=== PATIENT | male | born 1945 | race Hispanic/Latino ===

== ENCOUNTER 2021-02-25 12:42 | Inpatient (IN) | payer MEDICARE ==
[~2021-02-25] VITALS: Ht 170.2 cm; Wt 88.7 kg
[2021-02-25] MEDS ORDERED: GUAIFENESIN-CO473 ML PO (12:48)
--- NOTE | 2021-02-25 16:00 | NUR ---
76 year olD male patient admitted to ccu with dx of covid pneumonia. PATIENT ON OXYMASK AT 4 L . DENIES PAIN, C/O SHORTNESS OF BREATH. ADMISSION PROCESS STARTD.
--- NOTE | 2021-02-25 17:30 | NUR ---
ROUTINE MEDICATIONS GIVEN. SITTING UP IN BED FOR DINNER. STATES HE FEELS BETTER.
--- NOTE | 2021-02-25 18:48 | NUR ---
DR JENKINS IN UNIT AND VERBAL NOTIFICATION OF CRITICAL TROPONIN GIVEN TO HER.
--- NOTE | 2021-02-25 19:00 | NUR ---
report to next shift.
--- NOTE | 2021-02-25 19:15 | NUR ---
REPORT TO NEXT SHIFT.
--- NOTE | 2021-02-25 21:20 | NUR ---
pt asessment is complete. pt denies any needs or requests at this time, denies pain. pt given freah ice water. asked if needed to use bathroom he deines the need. call light in reach.
--- NOTE | 2021-02-25 23:16 | EKG ---
[facility] [address] [facility] [place], [place] [address] Signed Wide QRS rhythm Right bundle branch block Minimal voltage criteria for LVH, may be normal variant ( R in aVL ) Abnormal ECG No previous ECGs available Confirmed by DONI JENKINS MD ([id number]) on 02/25/2021 11:16:41 PM Electronically Signed By: DONI JENKINS MD 02/25/21 2316 PATIENT NAME: ELMER ASHBY Electrocardiogram DATE OF : 47 PHYSICIAN: DONI JENKINS MD REPORT #: [id number] REPORT IS CONFIDENTIAL AND NOT TO BE RELEASED WITHOUT AUTHORIZATION
--- NOTE | 2021-02-26 00:15 | NUR ---
PATIENT WOKE EASILY WHEN STAFF ENTERED THE ROOM. RT IN TO SEE PATIENT. TITRATED TO 3L OXYMASK, PATIENT HAD BEEN MID 90'S O2 SATS. PATIENT'S LUNGS ARE CLEAR, SLIGHTLY COARSE. NASAL CONGESTION NOTED. PATIENT'S ONLY CONCERN IS HAVING A BM, ASSURED HIM WE COULD TALK TO THE DOCTOR ABOUT THAT IN THE MORNING. ASSISTED PATIENT TO REPOSITION. HOB ELEVATED. ASSISTED PATIENT TO USE THE URNAL, 100 MLS DARK ORANGE URINE NOTED. ENCOURAGED ORAL FLUIDS. PATIENT FEELINGS DIAPHORETIC, AXILLARY TEMP WNL. PATIENTS RR 25-30.
--- NOTE | 2021-02-26 02:23 | NUR ---
patient appears to be sleeping soundly. rr 22, 02 sat 94% on 3l oxymask.
--- NOTE | 2021-02-26 04:19 | NUR ---
UPDATE GIVEN TO MD. ORDER FOR 500 ML BOLUS RECEIVED.
--- NOTE | 2021-02-26 05:15 | NUR ---
PATIENT COUGHING, PRN TYLNEOL AND TESSLON PEARLS PROVIDED. BOLUS FINISHED. CONTINUES TO TOLERATE 3L OXYMASK.
--- NOTE | 2021-02-26 11:20 | NUR ---
UP TO COMMOCE TO EXPELL SMALL LIQUID BROWN STOOL. O2 AT 2 L NC. PATIENT IS UNSTEADY ON FEET.
--- NOTE | 2021-02-26 12:45 | NUR ---
NAUSEATED, ZOFRON GIVEN. HAVING FREQUENT BELCHING. ABD MILD DISTENTION. SITTING ON COMMODE TO ATTEMPT TO HAVE ANOTHER BM. REFUSING LUNCH.
--- NOTE | 2021-02-26 18:53 | NUR ---
TOOK DINNER FAIR, DENIES PROBLEMS. REPORT TO NEXT SHIFT.
--- NOTE | 2021-02-26 20:28 | NUR ---
PATIENT UP TO BSC. 1PA, MILDLY UNSTEADY. RR UP TO 25 WITH ACTIVITY, TOLERATED ON 3L NC. LUNG SOUNDS ARE CLEAR IN RENE UPPERS, DIMINISHED WITH FINE CRACKLES ON LLL. PATIENT HAVING GI UPSET AND LOOSE STOOLS. PRN COUGH MEDS PROVIDED, NASAL CONGESTIONS ON GOING. VS STABLE, SOFT BP AND BRADYCARDIC. PATIENT DENIED OTHER NEEDS ASSISTED WITH PM CARE IN PREP FOR BED.
--- NOTE | 2021-02-27 00:47 | NUR ---
PATIENT UP TO THE BSC FOR THIRST TIME THIS SHIFT. PASSING GAS BUT NO BM. PATIENT HAD ABOUT 25MLS EMESIS AND DRY HEAVING. PRN ZOFRAN PROVIDED. PATIENT ALSO HAS MODERATE AMOUNT OF NASAL CONGRESTION, INSTRUCTED PATIENT TO BLOW HIS NOSE HARD. PATIENT TOLERATED ACTIVITY WITHOUT SOB, TITRATED TO 4L FOR ACTIVITY AND O2 SATS GREATER THAN 88%. PATIENT RETURNED TO BED, TITRATED BACK TO 2L NC. NO FURTHER NEEDS AT THIS TIME.
--- NOTE | 2021-02-27 04:30 | NUR ---
PATIENT UP TO THE BSC AGAIN. REPORTS FEELING CONSTIPATED. REQUEST AN ENEMA. FLEETS ENEMA PROVIDED. PATIENT WAITED 10 MINS AND THEN SAT ON THE CAMMODE FOR CLOSE TO 25MINS. PATIENT DID NOT HAVE BM. ENCOURAGED PATIENT TO REST. 2L NC.
--- NOTE | 2021-02-27 07:43 | EKG ---
[facility] [address] [place] [address] Signed Marked sinus bradycardia with 1st degree AV block Right bundle branch block Left anterior fascicular block Bifascicular block Abnormal ECG When compared with ECG of 25-FEB-2021 12:44, Sinus rhythm has replaced Wide QRS rhythm Vent. rate has decreased BY 57 BPM Confirmed by DONI JENKINS MD ([id number]) on 02/27/2021 7:43:25 AM Electronically Signed By: DONI JENKINS MD 02/27/21 0743 PATIENT NAME: ELMER ASHBY Electrocardiogram DATE OF : 47 PHYSICIAN: DONI JENKINS MD REPORT #: [id number] REPORT IS CONFIDENTIAL AND NOT TO BE RELEASED WITHOUT AUTHORIZATION
--- NOTE | 2021-02-27 08:00 | NUR ---
ASSESSMENT DONE. PATIENT DENIES PAIN OR SHORTNESS OF BREATH. STATES HE IS FEELING BETTER. TALKED WITH PATIENT ABOUT POC FOR THE DAY, INDICATES UNDERSTANDING.SITTING UP IN BED FOR BREAKFAST.
--- NOTE | 2021-02-27 09:00 | NUR ---
TOOK BREAKFAST FAIR. OOB TO COMMODE WITH ASSIST, IS UNSTEADY ON FEET. INCREASED SHORTNESS OF BREATH WITH EXERTION. BACK TO BED W/O INCIDENT.
--- NOTE | 2021-02-27 11:00 | NUR ---
RESTIN. O2 REMAINS AT 2 L NC.
--- NOTE | 2021-02-27 12:30 | NUR ---
ASSESSMENT UNCHANGED. HAS BEEN UP TO COMMODE WITH ASSIST. HAS HAD VERY SOFT BROWN STOOL. WHEN ON COMMODE, USUALLY SITS UP FOR APPROX 20 MIN.
--- NOTE | 2021-02-27 15:02 | NUR ---
Medications reconciled
--- NOTE | 2021-02-27 17:00 | NUR ---
DR. JENKINS HERE TO SEE PATIENT. PATIENT TO BE TRANSFERRED TO MEDICAL FLOOR THIS EVENING.
--- NOTE | 2021-02-27 17:30 | NUR ---
SITTING UP IN BED FOR DINNER. WILL BE TRANSFERRED TO 118 THIS PM.
--- NOTE | 2021-02-27 18:36 | NUR ---
POOR APPETITE. UP TO COMMODE. REPORT TO MED-SURG.
--- NOTE | 2021-02-27 18:58 | NUR ---
Patient arrived to medical floor from CCU. Patient awake, a/ox4. Patient denies pain. Vital signs stable. Patient is on 2L oxygen per nc, respirations non labored. Patient oriented to room and call light. Bed alarm intact.
--- NOTE | 2021-02-27 19:33 | NUR ---
REPORT RECIVED FROM SAL, PT WAS ADMITTED FROM CCU YANI GOMES POSITIVE, ON 2 LITERS NC.
--- NOTE | 2021-02-27 21:03 | NUR ---
pt assessment complete. assessment interuppted as pt needed to have bm and void. pt used bedside commmode with standby assist. had a "pebble" sized bm and an unmeasured void. pt denies any other needs or requests at this time. pt has spoke with his son on phone. call light in reach.
--- NOTE | 2021-02-27 22:36 | NUR ---
CHECKED ON PT. HE REMAINS ON CONTINUOUS PULSE OX WITH A SAT 94-95% ON 2 LITERS NC. PT IS AWAKE. HE DECLINES OFFER FOR ANYTHING AT THIS TIME, DENIES PAIN OR NEED TO USE BATHROOM. CALL LIGHT IN REACH.
--- NOTE | 2021-02-27 23:22 | NUR ---
CHECKED ON PT, HE IS STILL AWAKE ASKS FOR URINAL, PROVDIED URINEAL. HE VOIDED 100ML. DENIES OTHER NEEDS OR REQUESTS. CALL LIGHT IN REACH, REMAINS ON 2 LITERS O2 NC SATS 94-95%
--- NOTE | 2021-02-28 01:39 | NUR ---
checked on pt he is sitting upright in bed, remains on 2 liters O2, sats 94%. pt has used urinal to void, emptied urinal about 150 ml. asked pt if he is having any pain or discomfot, asked if he needed a warm blanket, to which he denies all of this, says "i'm fine"
--- NOTE | 2021-02-28 02:55 | NUR ---
PT APPEARS TO BE ASLEP, EYES CLOSED REMAINS ON 2 L NC, SATS 93-94%. RESPIRATIONS ARE UNLABORED RR 24.
--- NOTE | 2021-02-28 04:19 | NUR ---
NOTED PT'S SATS WERE 85% GOOD PLETH, WENT TO CHECK PT. HE DENIES FEELING LIKE HE S HAVING ANY TROUBLE BREATHING, PT JUST FINISHED USING URINAL. SATS GO BACK TO 94% WHEN PT DONE WITH ACTIVITY. REMAINS ON 2 LITERS NC. PT CONTINUES TO DENY ANY NEEDS OR REQUESTS.
--- NOTE | 2021-02-28 06:36 | NUR ---
PT HAS REMAINED ON 2 LITERS O2 NC ALL NIGHT, HAS VOIDED SEVERAL TIMES USING URINAL, HR CONTINUES TO BE IN THE 40'S MOST OF THE TIME, SATS 92-94% ON HIS O2. HAS DENIED NEEDS ALL NIGHT WHEN ASKED IF HE NEEDEED ANYTHING. ATTEMPTED TO HAVE A BM HAD A "PEBBLE" SIZE STOOL.
--- NOTE | 2021-02-28 07:32 | NUR ---
REPORT RECIEVED FROM KATARZYNA RNYOSSI.
--- NOTE | 2021-02-28 08:19 | NUR ---
PT AWAKE IN BED. WHITE BOARD UDPATED. CALL LIGHT WITHIN REACH. NO FURTHER NEEDS AT THIS TIME
--- NOTE | 2021-02-28 08:42 | NUR ---
MORNING ASSESSMENT DONE, PATIENT SITTING UP IN BED FOR BREAKFAST, NO RECLINER CURRENTLY IN ROOM. PATIENT GIVEN MORNING MEDICATIONS, DENIES PAIN. PATIENT IS ON 2L OF O2, DIM IN BASES, DRY NON-PRODUCTIVE COUGH NOTED. PATIENT DENIES OTHER NEEDS AT THIS TIME.
--- NOTE | 2021-02-28 09:53 | NUR ---
IV REMDISIVIR INFUSING FOR 30 MINUTES, PLAN TO INFUSE ZITHROMAX IMMEDIATELY AFTER.
--- NOTE | 2021-02-28 10:11 | NUR ---
PATIENT UP TO COMMODE WITH ONE PERSON ASSIST FOR BM AND VOID.
--- NOTE | 2021-02-28 11:45 | NUR ---
Attempted to see pt, he is sleeping. Not awakened. No plan for dc today.
--- NOTE | 2021-02-28 12:10 | NUR ---
PATIENT GIVEN COUGH MEDICATION. PATIENT IS STARTING TO PRODUCE SPUTUM AND IS ABLE TO COUGH UP AND SPIT OUT.
--- NOTE | 2021-02-28 13:08 | NUR ---
PATIENT REPORTED COUGHING UNTIL HE ACTUALLY THREW UP. PATIENT GIVEN 4MG IV ZOFRAN. LUNCH IS ON PATIENT TABLE, BUT HE DOES NOT FEEL LIKE EATING AT THIS TIME. VOID TO URINAL 150ML. PATIENT GIVEN NEW EMESIS BAG FOR SPUTUM.
--- NOTE | 2021-02-28 15:53 | NUR ---
PATIENT IS RESTING IN BED, REPORTS NO STOMACH PAIN, COUGHING HAS SLOWED. PATIENT GIVEN VISION GLASSES FROM HOME.
--- NOTE | 2021-02-28 18:44 | NUR ---
PATIENT SITTING UP IN BED EATING DINNER. VITALS AND I&O'S CHARTED. CALL LIGHT IN REACH. NO FURTHER NEEDS AT THIS TIME.
--- NOTE | 2021-02-28 18:47 | NUR ---
PATIENT IS AWARE THAT HE WILL HAVE A QUALIFY FOR HOME O2 TOMORROW AND LIKELY DISCHARGE TO HOME.
--- NOTE | 2021-02-28 19:25 | NUR ---
RECEIVED REPORT FROM DAY SHIFT RN. PATIENT IS RESTING IN BED WITH EYES CLOSED, RR 16. CALL IZABELA TARI CARTER. BED ALARM ON FOR SAFETY.
--- NOTE | 2021-02-28 19:30 | NUR ---
CALL LIGHT ANSWERED PATIENT WANTED TO USE THE TOILET. 1 PA TO BEDSIDE COMMODE. CHANGED GOWN. PATIENT TRIED TO HAVE A BOWEL MOVEMENT BUT DID NOT GO. PATIENT IS BACK IN BED. CALL LIGHT WITHIN REACH.
--- NOTE | 2021-02-28 21:30 | NUR ---
IN TO ROOM TO CHANGED TELE BATTERY. V/S AND I&O'S TAKEN AND RECORDED. PRIMARY RN LUANA WAS WITH PATIENT.
--- NOTE | 2021-02-28 22:00 | NUR ---
PATIENT ASSESMENT COMPLETED. VITALS TAKEN AND RECORDED. INTAKE AND OUTPUT RECORDED. PATIENT DENIES ANY SOB. PATIENT REMAINS ON 2L VIA [place]. PATIENT REPORTS COUGH. PATIENT GIVEN PRN COUGH MEDICATION PER ORDER. PATIENTS SCHEDULED MEDICATION GIVEN PER ORDER. FRESH ICE WATER PROVIDED. PATIENT DENIES ANY NEEDS. CALL LIGHT IN REACH. BED ALARM ON. UPDATE PATIENTS ROBERT SANCHES ON PLAN OF CARE, ALL QUESTIONS ANSWERED.
--- NOTE | 2021-03-01 00:05 | NUR ---
PATIENT IS RESTING IN BED WATCHING TV. PATIENT DENIES ANY SOB OR NEEDS. CALL LIGHT IN REACH.
--- NOTE | 2021-03-01 01:44 | NUR ---
PATIENT ASSISTED TO THE BSC A SBA. PATIENT WAS ABLE TO VOID. PATIENT IS BACK IN BED RESTING. PATIENT DENIES ANY FURTHER NEEDS. CALL LIGHT IN REACH. BED ALARM ON
--- NOTE | 2021-03-01 04:27 | NUR ---
PATIENT IS RESTING IN BED WITH EYES CLOSED, RR 18. CALL LIGHT IN REACH.
--- NOTE | 2021-03-01 04:44 | NUR ---
PATIENT RESTED ON AND OFF THROUGHTOUT THE SHIFT. PATIENT IS ON A REGULAR DIET, DECREASED APPETITE NOTED. PATIENT IS ON 2L VIA NC, WHICH IS NOT CHRONIC. PATIENT USES URINAL IN BED OS SBA TO BSC. PATIENT IS ON CPOX ON TELE #6. PATIENT IS SL AND IV FLUSHES WELL. PATIENT HAS A PRODCUCTIVE COUGH. PRN COUGH MEDICATION X1. PATIENT USES CALL LIGHT APPROPRIATELY.
--- NOTE | 2021-03-01 06:20 | NUR ---
PATIENT RESTED ON AND OFF THROUGHTOUT THE SHIFT. PATIENT IS ON A REGULAR DIET DECREASED APPETITE NOTED. PATIENT IS ON 2L VIA NC, WHICH IS NOT CHRONIC. PATIENT USES URINAL IN BED OS SBA TO BSC. PATIENT IS ON CPOX ON TELE #6. PATIENT IS SL AND IV FLUSHES WELL. PATIENT HAS A PRODCUCTIVE COUGH. PRN COUGH MEDICATION X1. PATIENT USES CALL LIGHT APPROPRIATELY.
--- NOTE | 2021-03-01 06:21 | NUR ---
PATIENTS VITALS TAKEN AND RECCORDED. INTAKE AND OUTPUT RECORDED. PATIENT REMAINS ON 2L VIA [place]. PATIENT DENIES ANY SOB. PATIENT DENIES ANY NEEDS. FRESH ICE WATER PROVIDED. CALL LIGHT IN REACH.
--- NOTE | 2021-03-01 07:51 | NUR ---
this rn received report from mary kramer. pt has cpox in place. sats >90% and pt is bradycardic.
--- NOTE | 2021-03-01 08:40 | NUR ---
THIS RN IN PTS ROOM TO GIVE PT MORNING MEDS. PT SITTING UP IN BED AND STATES THAT HE IS DOING WELL. CALL LIGHT WITHIN REACH
--- NOTE | 2021-03-01 09:45 | NUR ---
THIS RN IN PTS ROOM TO SALINE LOCK PT. PT STATES THAT HE NEEDS NOTHING AT THIS TIME.
--- NOTE | 2021-03-01 12:15 | NUR ---
THIS RN IN PTS ROOM TO CHECK ON PT. THIS RN ASSISTED PT WITH MOVING HIS URINAL CLOSER AND CALL LIGHT MORE IN REACH. PT REPORTS NEEDING NOTHING FURTHER
--- NOTE | 2021-03-01 13:10 | NUR ---
Pt lives with his . Daughters assist and son in law. Pt lives in a 1 story house with 1 step. Pt will need a walker on ne, 02, and . daughter will pick pt up on dc. Orders sent to [facility], 02 will be delivered today and walker in the morning. Daughter states they have a 4ww pt can use until FWW is delivered in AM. Orders sent to [facility] for HH. Brochure given to daughter for [facility]. Pt to ne today to home with daughter. Daughter will waste picker when off work.
[2021-03-01] MEDS ORDERED: NICOTINE LOZENGE4 MG BUCCAL (14:19)
[2021-03-01] MEDS ORDERED: BENZONATATE100 MG PO (14:20)
[2021-03-01] MEDS ORDERED: DEXAMETHASONE6 MG PO (14:20)
== END 2021-03-01 16:15 | disposition home or self-care (01) | DRG 177 ==
LOC: ED 12:42 → MS 14:51 → CCU 14:51 → MS 02-27 19:15
PROVIDERS: ADMIT Internal Medicine; ATTEND Internal Medicine
PROC: 8E0ZXY6 Isolation (ICD-10-PCS; principal; 2021-02-25)
PROC: 3E033XZ Introduction of Vasopressor into Peripheral Vein, Percutaneous Approach (ICD-10-PCS; 2021-02-25)
PROC: XW033E5 Introduction of Remdesivir Anti-infective into Peripheral Vein, Percutaneous Approach, New Technology Group 5 (ICD-10-PCS; 2021-02-25)
PROC: 3E0DX3Z Introduction of Anti-inflammatory into Mouth and Pharynx, External Approach (ICD-10-PCS; 2021-02-26)
DX: U07.1 COVID-19 (principal); J12.82 Pneumonia due to coronavirus disease 2019; J96.01 Acute respiratory failure with hypoxia; N17.9 Acute kidney failure, unspecified; I25.10 Atherosclerotic heart disease of native coronary artery without angina pectoris; R00.1 Bradycardia, unspecified; Z88.0 Allergy status to penicillin; F17.200 Nicotine dependence, unspecified, uncomplicated; Z88.5 Allergy status to narcotic agent; Z88.8 Allergy status to other drugs, medicaments and biological substances
CPT/HCPCS: 71045; 80053; 80061; 81001; 82803; 83605; 83735; 83880; 84484; 85025; 87040; 87088; 93005; 93010; 94640; 94760; 94761; 96374; 97161; 99285-25; C9113; C9803; J0248; J0456; J0696; J1650; J2405; J7030; J7040; J7050; J7060; J7121; J8540; U0003

== ENCOUNTER 2024-05-22 03:44 | Emergency (ER) | payer MEDICARE ==
[~2024-05-22] VITALS: Ht 170.2 cm; Wt 95.0 kg
[~2024-05-22 03:44] MED LIST: BENZONATATE100 MG PO; DEXAMETHASONE6 MG PO; GUAIFENESIN-CO473 ML PO; NICOTINE LOZENGE4 MG BUCCAL
[2024-05-22] MEDS ORDERED: NITROGLYCERIN 0.4 MG SUBL SL PRN (04:00)
[2024-05-22] MEDS ORDERED: ASPIRIN 81 MG CHEW PO ONE (04:00)
[2024-05-22 04:06] LABS: BASOPHILS 0.7 % (0-2); EOSINOPHILS 2.1 % (0-6); HEMATOCRIT 45.2 % (35.0-50.0); HEMOGLOBIN 15.3 g/dL (12.0-18.0); LYMPHOCYTES 20.9 % (24-44); MCH 30.9 (27-36); MCHC 33.9 g/dl (30-36); MCV 91.4 fl (81-99); MONOCYTES 8.5 % (0-12); NEUTROPHILS 67.8 % (39-80); PLATELET COUNT 181 K/uL (140-440); RBC 4.94 M/ul (4.3-5.7); RDW 14.4 (10.5-15.0)
[2024-05-22 04:18] LABS: INR 1.07 (0.80-1.30); PROTIME 13.3 Sec (11.2-14.2)
[2024-05-22 04:40] LABS: ALBUMIN 3.9 g/dL (3.4-5.0); ALBUMIN/GLOBULIN RATIO 1.03 (1.1-2.4); BILIRUBIN, TOTAL 0.7 mg/dL (0.2-1.0); BUN/CREATININE RATIO 16.4 (6.0-28.6); CALCIUM 9.3 mg/dL (8.5-10.1); CREATININE, SERUM 1.28 mg/dL (0.70-1.30); MAGNESIUM 2.1 mg/dL (1.8-2.4); PROTEIN, TOTAL 7.7 g/dL (6.4-8.2)
[2024-05-22 04:46] LABS: ANION GAP 6.9 (7-21); POTASSIUM 3.9 mmol/L (3.5-5.1)
[2024-05-22 04:52] LABS: INFLUENZA B NAA NEGATIVE (NEGATIVE); RESPIRATORY SYNCYTIAL VIR NAA NEGATIVE (NEGATIVE)
[2024-05-22] MEDS ORDERED: INHALER, ASSIST DEVICES 1 EACH SPACER MISC ONE (05:30)
[2024-05-22] MEDS ORDERED: ALBUTEROL SULFATE 8 GM HOME.PACK INH ONE (05:30)
[2024-05-22] MEDS ORDERED: AZITHROMYCIN 250 MG HOME.PACK PO ONE (05:30)
[2024-05-22] MEDS ORDERED: methylPREDNISolone 4 MG HOME.PACK PO ONE (05:30)
[2024-05-22 05:55] VITALS: BP 114/77
--- NOTE | 2024-05-23 14:39 | EKG ---
[facility] [address] [facility] [address] [place] [address] Signed Sinus bradycardia with sinus arrhythmia with 1st degree AV block Right bundle branch block Left anterior fascicular block Bifascicular block Abnormal ECG When compared with ECG of 26-JUL-2021 17:51, T wave inversion now evident in Inferior leads Nonspecific T wave abnormality now evident in Anterior leads Confirmed by Luci Aaron MD () on 05/23/2024 2:39:07 PM Electronically Signed By: LUCI AARON MD 05/23/24 1439 PATIENT NAME: ELMER ASHBY Electrocardiogram DATE OF : 47 PHYSICIAN: LUCI AARON MD REPORT #: [id number] REPORT IS CONFIDENTIAL AND NOT TO BE RELEASED WITHOUT AUTHORIZATION
== END 2024-05-22 05:55 | disposition home or self-care (01) ==
LOC: ED 03:44
PROVIDERS: Family Medicine
DX: R07.89 Other chest pain (principal); J44.9 Chronic obstructive pulmonary disease, unspecified; F17.200 Nicotine dependence, unspecified, uncomplicated; Z88.0 Allergy status to penicillin
CPT/HCPCS: 36415; 71045; 80053; 83735; 83880; 84484; 85025; 85610; 87502; 93005; 93010; 94664; 99285-25; A9270; U0002